=== PATIENT | male | born 1990 | race Caucasian/White ===

== ENCOUNTER 2017-01-31 23:07 | Emergency (ER) | payer SELFPAY ==
[2017-01-31 23:19] VITALS: BP 144/76; PULSE 67; RESP 16; TEMP 98.3; O2SAT 100
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
--- NOTE | 2017-02-01 08:53 | RAD ---
PROCEDURE: Right Foot Radiographs. HISTORY: R/O FX COMPARISON: None. FINDINGS: BONES: Normal. No fracture. JOINTS: Normal. SOFT TISSUES: Normal. OTHER FINDINGS: Incidental sissoring of the 4th toe over the 3rd IMPRESSION: No fracture
== END 2017-02-01 00:39 | disposition home or self-care (01) ==
LOC: C.ER 23:07
DX: S90.31XA Contusion of right foot, initial encounter (principal); W22.8XXA Striking against or struck by other objects, initial encounter; Y93.89 Activity, other specified; Y92.512 Supermarket, store or market as the place of occurrence of the external cause